=== PATIENT | female | born 1955 | race Caucasian/White ===

== ENCOUNTER 2021-05-20 11:35 | Day surgery (SDC) | payer OTHER, SELFPAY ==
[2021-05-20] MEDS ORDERED: fentaNYL citrate 0.05 MG/ML VIAL ONE (13:33)
[2021-05-20] MEDS ORDERED: diphenhydrAMINE 50 MG/ML VIAL ONE (13:33)
[2021-05-20] MEDS ORDERED: MIDAZOLAM 5 MG/5 ML VIAL ONE (13:33)
== END 2021-05-20 15:00 | disposition home or self-care (01) ==
LOC: MDS 11:35 → MMU 11:35 → MDS 15:00
PROVIDERS: ATTEND Internal Medicine Gastroenterology
DX: K59.00 Constipation, unspecified (principal); I10 Essential (primary) hypertension; E11.9 Type 2 diabetes mellitus without complications; Z80.0 Family history of malignant neoplasm of digestive organs; Z79.84 Long term (current) use of oral hypoglycemic drugs; Z79.899 Other long term (current) drug therapy; Z20.822 Contact with and (suspected) exposure to COVID-19
CPT/HCPCS: J1200; J2250; J3010

== ENCOUNTER 2021-06-02 07:07 | Day surgery (SDC) | payer OTHER, SELFPAY ==
[~2021-06-02] VITALS: Ht 152.4 cm; Wt 70.8 kg
[2021-06-02] MEDS ORDERED: fentaNYL citrate 0.05 MG/ML VIAL ONE (08:15)
[2021-06-02] MEDS ORDERED: diphenhydrAMINE 50 MG/ML VIAL ONE (08:15)
[2021-06-02] MEDS ORDERED: MIDAZOLAM 5 MG/5 ML VIAL ONE (08:16)
[2021-06-02] MEDS ORDERED: fentaNYL citrate 0.05 MG/ML VIAL IVP ONE (08:45)
[2021-06-02] MEDS ORDERED: MIDAZOLAM 2 MG/2 ML VIAL IVP ONE (08:45)
[2021-06-02] MEDS ORDERED: MIDAZOLAM 5 MG/5 ML VIAL IV ONE (08:55)
== END 2021-06-02 09:10 | disposition home or self-care (01) ==
LOC: MDS 07:07 → MMU 07:08 → MDS 09:10
PROVIDERS: ATTEND Internal Medicine Gastroenterology
DX: R10.9 Unspecified abdominal pain (principal); K29.50 Unspecified chronic gastritis without bleeding; K59.00 Constipation, unspecified; I10 Essential (primary) hypertension; E11.9 Type 2 diabetes mellitus without complications; Z80.0 Family history of malignant neoplasm of digestive organs; Z79.84 Long term (current) use of oral hypoglycemic drugs; Z79.899 Other long term (current) drug therapy
CPT/HCPCS: 43239; 87426; J2250; J3010; 88305; 88312; 88313; 88342; J1200